=== PATIENT | female | born 1995 | race African-American/Black ===

== ENCOUNTER 2017-04-25 20:58 | Emergency (ER) | payer SELFPAY ==
[2017-04-25 21:00] VITALS: BP 111/68; PULSE 82; RESP 16; TEMP 99.1; O2SAT 98
[2017-04-25] MEDS ORDERED: diphenhydrAMINE HCL 50 MG CAP PO ONE (22:00)
[2017-04-25] MEDS ORDERED: predniSONE 20 MG TAB PO ONE (22:00)
[2017-04-25] MEDS ORDERED: TRIA.1%T TOPICAL (22:04)
--- NOTE | 2017-04-25 22:10 | PD ---
HPI Chief Complaint: Skin Problem Time Seen by Provider: 22:05 Travel History International Travel<30 days: No Contact w/Intl Traveler<30days: No Traveled to known affect area: No History of Present Illness HPI 21-year-old female presents to emergency department with complains of a enlarging red area to her left lower leg for the past 3 days. She states that it started off as a small red area which was pruritic in nature. She states that she did scratch the area mildly. It has worsened over last 3 days. It's mildly tender. It feels warm to touch. She also states that she had just gotten back from [place] 2 weeks ago. Since she's been back she's had some subjective fever and chills, upset stomach and diarrhea. She states that she has felt warm as if she has had a low-grade temperature. She denies any nausea vomiting. No dysuria or frequency. No abdominal pain. No vaginal complaints. She denies any history of insect bite or trauma. She denies any history of connective tissue disorders [facility] Past Medical History Narrative Medical Asthma Tetanus Vaccination: > 5 Years ?: Not LMP: 04/06/17 Past Surgical History Surgical History: No Previous Surgery Social History Alcohol Use: Yes Tobacco Use: No Allergies-Medications (Allergen,Severity, Reaction): Coded Allergies: Sulfa (Verified Allergy, Unknown, 04/25/17) Reported Meds & Prescriptions Reported Meds & Active Scripts Active Triamcinolone Topical (Triamcinolone Acetonide) 0.1% Cream 1 Applic TOPICAL BID Review of Systems Except as stated in HPI: all other systems reviewed are Neg Physical Exam Narrative GENERAL: Well-developed, well-nourished in no acute distress. Nontoxic appearing. HEAD: Normocephalic, atraumatic. EYES: Pupils equal round and reactive. Extraocular motions intact. No scleral icterus. No injection or drainage. ENT: TMs clear without erythema. The external auditory canals clear. Nose: clear . Posterior pharynx is pink and moist. No tonsillar edema or exudate. Uvula midline. Airway patent. NECK: Trachea midline.Supple, nontender, moves head freely. No central bony tenderness or spasm. CARDIOVASCULAR: Regular rate and rhythm without murmurs, gallops, or rubs. RESPIRATORY: Clear to auscultation. Breath sounds equal bilaterally. No wheezes , rales, or rhonchi. GASTROINTESTINAL: Abdomen soft, non-tender, nondistended. No hepato-splenomegaly , or palpable masses. No guarding. EXTREMITIES: No clubbing, cyanosis, or edema. No joint tenderness, effusion, or edema noted. BACK: Nontender without deformity or crepitance. No flank tenderness. Skin: The patient has approximately a 6 x 6 area of erythema, warmth and induration to the left lower leg pretibial region. There is no fluctuance or pointing. Mildly tender. There is no other lesions noted on the leg or the opposite leg. No lesions on the upper extremities. Data Data Last Documented VS Vital Signs Date Time Temp Pulse Resp B/P Pulse Ox O2 Delivery O2 Flow Rate FiO2 04/25/17 21:00 99.1 82 16 111/68 98 Room Air Orders Prednisone (Deltasone) (04/25/17 22:00) Diphenhydramine (Benadryl) (04/25/17 22:00) MDM Medical Decision Making Medical Screen Exam Complete: Yes Emergency Medical Condition: Yes Medical Record Reviewed: Yes Differential Diagnosis MDM: High Differential diagnoses: Abscess, folliculitis, cellulitis, lymphangitis, abrasion, contact dermatitis, insect bite, erythema nodosum, vasculitis Narrative Course I explained to the patient that this very well could be an insect bite as well as a autoimmune or inflammatory response. I've agreed to give her give her a by mouth dose of steroids here in the ER. She is given 60 mg by mouth and Benadryl 50 mg by mouth. The patient has agreed to follow-up with her physician tomorrow for recheck. She realizes that additional laboratory testing may be indicated for morbid definitive diagnosis if she does not respond to treatment. This is left lower extremity contact dermatitis. Rule out erythema nodosum versus other rashes. Diagnosis Primary Impression: left lower leg contact dermatitis Patient Instructions: General Instructions Additional Instructions: Rest. Elevation. Cool compress. 50 g of Benadryl every 4-6 hours. Triamcinolone cream. Recheck with your doctor tomorrow. May require additional laboratory testing. Return to the ER if any problems develop or worsening. Med/Other Pt SpecificInfo: Prescription(s) given, Wound Care Scripts Triamcinolone Topical 0.1% Cream1 Applic TOPICAL BID #30 GM Prov:Josue Thompson MD 04/25/17 Disposition: 01 DISCHARGE HOME Condition: Stable Marcos Allen Apr 25, 2017 22:10
== END 2017-04-25 22:26 | disposition home or self-care (01) ==
LOC: NEPD 20:58
DX: L25.9 Unspecified contact dermatitis, unspecified cause (principal); J45.909 Unspecified asthma, uncomplicated
CPT/HCPCS: 99283; J7512; Q0163